=== PATIENT | female | born 1960 | race Two or more races ===

== ENCOUNTER → 2019-04-08 | Emergency (ER) | payer OTHER ==
[~2019-04-08] VITALS: Ht 165.1 cm; Wt 55.3 kg
[~2019-04-08] MED LIST: IBUPROFEN600 MG ORAL; ROBAXIN-750750 MG PO
[2019-04-08 18:00] VITALS: BP 129/77
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
[2019-04-08 19:00] VITALS: BP 129/77
--- NOTE | 2019-04-08 19:03 | NUR ---
ER DISCHARGE NOTE: Patient is cleared to be discharged per ERMD, pt is aox4, on room air, with stable vital signs. pt was given dc and prescription instructions, pt was able to verbalize understanding, pt id band removed. pt is able to ambulate with steady gait. pt took all belongings.
== END | disposition home or self-care (01) ==
LOC: EMR 18:15
DX: S16.1XXA Strain of muscle, fascia and tendon at neck level, initial encounter (principal); V43.52XA Car driver injured in collision with other type car in traffic accident, initial encounter; Y92.411 Interstate highway as the place of occurrence of the external cause
CPT/HCPCS: 99283